=== PATIENT | male | born 1970 | race Caucasian/White ===

== ENCOUNTER 2020-11-18 10:58 | Emergency (ER) | payer OTHER ==
[2020-11-18 11:35] LABS: HEMOGLOBIN 14.1 gm/dl (14.0-17.5); RED BLOOD COUNT 4.84 M/UL (4.20-5.50); WHITE BLOOD COUNT 9.7 K/UL (4.5-11.0)
[2020-11-18] MEDS ORDERED: ZOFRAN ODT 4 MG4 MG PO (14:44)
[2020-11-18] MEDS ORDERED: FLOMAX 0.4 MG0.4 MG PO (14:44)
[2020-11-18] MEDS ORDERED: PERCOCET 5-3251 EACH PO (14:46)
[2020-11-21] MEDS ORDERED: LEVOTHYROXINE150 MC1 PO (11:07)
[2020-11-21] MEDS ORDERED: COSENTYX P150 MG/1 M SQ (11:11)
== END 2020-11-18 15:00 | disposition home or self-care (01) ==
LOC: ER1 10:58
PROVIDERS: Nurse Practitioner
DX: N13.2 Hydronephrosis with renal and ureteral calculous obstruction (principal); R74.8 Abnormal levels of other serum enzymes; E03.9 Hypothyroidism, unspecified; Z87.442 Personal history of urinary calculi; Z79.899 Other long term (current) drug therapy; Z87.891 Personal history of nicotine dependence
CPT/HCPCS: 80053; 81001; 83605; 83690; 85025; 96374; 96375; 99284; J1170; J1885; J2270; J2405; Q9967

== ENCOUNTER → 2020-11-20 | Outpatient (CLI) | payer OTHER ==
[~2020-11-20] MED LIST: COSENTYX P150 MG/1 M SQ; FLOMAX 0.4 MG0.4 MG PO; LEVOTHYROXINE150 MC1 PO; PERCOCET 5-3251 EACH PO; ZOFRAN ODT 4 MG4 MG PO
== END ==
LOC: EXRD 12:50
DX: N13.30 Unspecified hydronephrosis (principal); N20.0 Calculus of kidney
CPT/HCPCS: 74018

== ENCOUNTER → 2020-11-21 | Day surgery (SDC) | payer OTHER ==
[2020-11-28 19:08] LABS: CA OXALATE DIHYDRATE 40 % (.); CALCIUM OXALATE MONOHYDRATE 60 % (.); COLOR Brown (.); SIZE 3x3 mm (.); SOURCE Kidney (.); WEIGHT 41 mg (.)
== END | disposition home or self-care (01) ==
LOC: OR 09:17
PROVIDERS: Urology
PROC: 0TC68ZZ Extirpation of Matter from Right Ureter, Via Natural or Artificial Opening Endoscopic (ICD-10-PCS; 2020-11-21)
PROC: 0T788DZ Dilation of Bilateral Ureters with Intraluminal Device, Via Natural or Artificial Opening Endoscopic (ICD-10-PCS; 2020-11-21)
PROC: 0TC78ZZ Extirpation of Matter from Left Ureter, Via Natural or Artificial Opening Endoscopic (ICD-10-PCS; principal; 2020-11-21 12:15)
DX: N20.2 Calculus of kidney with calculus of ureter (principal); L40.9 Psoriasis, unspecified; E03.9 Hypothyroidism, unspecified; E66.01 Morbid (severe) obesity due to excess calories; Z68.37 Body mass index [BMI] 37.0-37.9, adult; Z87.442 Personal history of urinary calculi; Z20.822 Contact with and (suspected) exposure to COVID-19; Z79.899 Other long term (current) drug therapy
CPT/HCPCS: 87635; C1769; C1894; C2617; J1100; J1170; J1956; J2250; J2405; J2704; J3010; J7030; J7120

== ENCOUNTER → 2020-12-02 | Outpatient (CLI) | payer OTHER | LOC: RAD 16:30 | DX: N20.2 Calculus of kidney with calculus of ureter (principal); Z96.0 Presence of urogenital implants | CPT/HCPCS: 74018 ==

== ENCOUNTER → 2020-12-05 | Day surgery (SDC) | payer OTHER | END | disposition home or self-care (01) | LOC: OR 10:12 | DX: N13.2 Hydronephrosis with renal and ureteral calculous obstruction (principal); E03.9 Hypothyroidism, unspecified; L40.9 Psoriasis, unspecified; E66.01 Morbid (severe) obesity due to excess calories; Z68.37 Body mass index [BMI] 37.0-37.9, adult; Z87.891 Personal history of nicotine dependence; Z87.442 Personal history of urinary calculi; Z79.899 Other long term (current) drug therapy | CPT/HCPCS: J1100; J1956; J2001; J2250; J2405; J2704; J3010 ==

== ENCOUNTER 2021-07-25 02:06 | Emergency (ER) | payer OTHER ==
[2021-07-25 03:15] LABS: HEMOGLOBIN 13.6 gm/dl (14.0-17.5); RED BLOOD COUNT 4.62 M/UL (4.20-5.50); WHITE BLOOD COUNT 10.9 K/UL (4.5-11.0)
[2021-07-25 03:38] LABS: BUN/CREATININE RATIO 13 (0-10)
[2021-07-25] MEDS ORDERED: FLOMAX 0.4 MG0.4 MG PO (04:58)
[2021-07-25] MEDS ORDERED: TORADOL 10 MG T10 MG PO (04:58)
[2021-07-25] MEDS ORDERED: ZOFRAN ODT 4 MG4 MG PO (04:58)
== END 2021-07-25 05:10 | disposition home or self-care (01) ==
LOC: ER1 02:06
PROVIDERS: Physician Assistant
DX: N13.2 Hydronephrosis with renal and ureteral calculous obstruction (principal); Z20.822 Contact with and (suspected) exposure to COVID-19; Z87.442 Personal history of urinary calculi
CPT/HCPCS: 0240U; 71045; 80053; 81001; 82150; 83690; 85025; 87081; 87086; 87880; 96372; 99284; J1885